=== PATIENT | female | born 2005 | race Two or more races ===

== ENCOUNTER 2025-01-03 15:34 | Inpatient (IN) | payer MEDICAID ==
[2025-01-03] MEDS ORDERED: Misoprostol 25 MCG (1/4 of 100 MCG) Tab VAG PRN ×2 (16:42)
[2025-01-03] MEDS ORDERED: Terbutaline 1 MG/ML SDV SUBCUT PRN (16:42)
[2025-01-03] MEDS ORDERED: Oxytocin/0.9 % Sodium Chloride 30 UNIT/500 ML BAG IV SCH (16:45)
[2025-01-03] MEDS: Lactated Ringers 1,000 ML IV SCH (17:25)
[2025-01-03] MEDS ORDERED: Water For Irrigation,Sterile 1,000 ML Container IRR PRN (17:46)
[2025-01-03] MEDS ORDERED: Carboprost Tromethamine 250 MCG/1 mL Vial IM PRN (17:46)
[2025-01-03] MEDS ORDERED: Sodium Chloride 0.9% 10 ML Syringe FLUSH PRN (17:46)
[2025-01-03] MEDS ORDERED: Sodium Chloride 0.9% 2.5 ML Syringe FLUSH PRN (17:46)
[2025-01-03 18:06] LABS: MEAN PLATELET VOLUME 12.7 fL (9.4-12.3); NRBC ABSOLUTE 0.00 K/uL (0.00-0.02); NRBC PERCENT 0.0 /100WBC (0.0-0.2); PLATELET COUNT,PLT 178 K/uL (150-400); RED BLOOD CELL COUNT 4.80 M/uL (4.10-5.30); WHITE BLOOD CELL COUNT,WBC 12.64 K/uL (3.9-11.3)
[2025-01-03 18:30] LABS: A/G RATIO 0.7 (0.9-1.6); ALANINE AMINOTRANSFERASE,ALT 44.0 IU/L (14-63); ASPARTATE AMNIOTRANSFERASE,AST 38.0 IU/L (15-37); BILIRUBIN TOTAL 0.3 mg/dL (0.2-1.0); BLOOD UREA NITROGEN,BUN 11.0 mg/dL (7.0-18.0); CARBON DIOXIDE,CO2 22.8 mmol/L (21.0-32.0); CHLORIDE,CL 104.0 mmol/L (98-107); CREATININE 0.6 mg/dL (0.6-1.0); EST CRCL DRUG DOSING (CG) 145.44 mL/min; GLUCOSE RANDOM 70.0 mg/dL (74-106); POTASSIUM,K 3.7 mmol/L (3.5-5.1); PROTEIN TOTAL,TP 7.5 g/dL (6.4-8.2); SODIUM,NA 139.0 mmol/L (136-145)
[2025-01-03 18:31] LABS: ESTIMATED GFR 132.0 mL/min (>60)
[2025-01-03] MEDS: Butorphanol 1 MG/ML SDV IVPUSH PRN (18:47)
[2025-01-03 18:49] LABS: APPEARANCE,URINE CLEAR; GLUCOSE,URINE NEGATIVE (NEGATIVE); OCCULT BLOOD,URINE SMALL (NEGATIVE)
[2025-01-03] MEDS ORDERED: Ropivacaine HCl/PF 200 ML ONE (19:31)
[2025-01-03] MEDS ORDERED: dexmedeTOMIDine HCl 200 MCG/2 ML SDV ONE (19:31)
[2025-01-03 19:39] LABS: EPITHELIAL CELLS,URINE FEW (NONE-FEW)
[2025-01-03] MEDS ORDERED: ePHEDrine 50 MG/ML SDV IVPUSH PRN (20:03)
[2025-01-03] MEDS ORDERED: dexmedeTOMIDine HCl 200 MCG/2 ML SDV EPIDUR SCH (20:15)
[2025-01-03] MEDS: Ropivacaine HCl/PF 400 MG in Premix Bag 1 BAG EPIDUR SCH (20:15)
[2025-01-03] MEDS: Ondansetron 4 MG/2 ML SDV IVPUSH PRN (23:42)
[2025-01-04] MEDS: Oxytocin/0.9 % Sodium Chloride 30 UNIT/500 ML BAG IV SCH (03:03)
[2025-01-04] MEDS ORDERED: Aluminum Hydroxide/Magnesium Hydroxide/Simethicone Susp 30 ML Cup PO PRN (04:08)
[2025-01-04 04:14] LABS: PH,UMBILICAL ARTERIAL 7.23 (7.18-7.38); PH,UMBILICAL VENOUS 7.32 (7.25-7.45)
[2025-01-04] MEDS: Lanolin 100% Cream 7 GM Tube TOP PRN (05:56)
[2025-01-04] MEDS: Benzocaine/Menthol 20%-0.5% Spray 78 GM Cannister TOP PRN (05:56)
[2025-01-04] MEDS: Witch Hazel Medicated Pads 40/Jar TOP PRN (05:56)
[2025-01-04 05:58] LABS: BASOPHILS ABSOLUTE AUTO 0.02 K/uL (0.00-0.20); BASOPHILS PERCENT AUTO 0.1 % (0.0-1.0); EOSINOPHILS ABSOLUTE AUTO 0.00 K/uL (0.00-0.45); EOSINOPHILS PERCENT AUTO 0.0 % (0.0-6.0); IMMATURE GRAN ABSOLUTE AUTO 0.10 K/uL (0.00-0.05); IMMATURE GRAN PERCENT AUTO 0.6 % (0.0-0.4); LYMPHOCYTES ABSOLUTE AUTO 0.80 K/uL (1.00-4.80); LYMPHOCYTES PERCENT AUTO 4.7 % (24.0-44.0); MEAN PLATELET VOLUME 12.6 fL (9.4-12.3); MONOCYTES ABSOLUTE AUTO 1.13 K/uL (0.00-0.80); MONOCYTES PERCENT AUTO 6.6 % (0.0-8.0); NEUTROPHILS ABSOLUTE AUTO 15.06 K/uL (1.80-7.70); NEUTROPHILS PERCENT AUTO 88.0 % (41.0-71.0); NRBC ABSOLUTE 0.00 K/uL (0.00-0.02); NRBC PERCENT 0.0 /100WBC (0.0-0.2); PLATELET COUNT,PLT 184 K/uL (150-400); RED BLOOD CELL COUNT 4.22 M/uL (4.10-5.30); WHITE BLOOD CELL COUNT,WBC 17.11 K/uL (3.9-11.3)
[2025-01-04 06:29] LABS: A/G RATIO 0.7 (0.9-1.6); ALANINE AMINOTRANSFERASE,ALT 37.0 IU/L (14-63); ASPARTATE AMNIOTRANSFERASE,AST 36.0 IU/L (15-37); BILIRUBIN TOTAL 0.4 mg/dL (0.2-1.0); BLOOD UREA NITROGEN,BUN 8.0 mg/dL (7.0-18.0); CARBON DIOXIDE,CO2 24.4 mmol/L (21.0-32.0); CHLORIDE,CL 107.0 mmol/L (98-107); CREATININE 0.8 mg/dL (0.6-1.0); EST CRCL DRUG DOSING (CG) 109.08 mL/min; GLUCOSE RANDOM 119.0 mg/dL (74-106); POTASSIUM,K 3.3 mmol/L (3.5-5.1); PROTEIN TOTAL,TP 6.2 g/dL (6.4-8.2); SODIUM,NA 141.0 mmol/L (136-145)
[2025-01-04 06:43] LABS: ESTIMATED GFR 108.0 mL/min (>60)
== END 2025-01-06 21:00 | disposition home or self-care (01) | DRG 806 ==
LOC: MW.OBCHECK 15:34 → MW.OB 16:36 → OBSVTOIN 16:36 → MW.OB 01-04 06:36
PROVIDERS: ADMIT Obstetrics & Gynecology; ATTEND Obstetrics & Gynecology
PROC: 10E0XZZ Delivery of Products of Conception, External Approach (ICD-10-PCS; principal; 2025-01-03)
PROC: 0KQM0ZZ Repair Perineum Muscle, Open Approach (ICD-10-PCS; 2025-01-03)
PROC: 3E0R3BZ Introduction of Anesthetic Agent into Spinal Canal, Percutaneous Approach (ICD-10-PCS; 2025-01-03)
DX: O48.0 Post-term pregnancy (principal); O98.52 Other viral diseases complicating childbirth; Z37.0 Single live birth; Z3A.40 40 weeks gestation of pregnancy; O70.1 Second degree perineal laceration during delivery; O77.0 Labor and delivery complicated by meconium in amniotic fluid
CPT/HCPCS: 36415; 51702; 59020; 59025; 59409; 76805; 76805-26; 80053; 81001; 82803; 85025; 85027; 86592; 86850; 86900; 86901; 87086; 87088; 87186; A9270-GY; J0595; J0665; J2371; J2405; J2590; J2795; J7120